=== PATIENT | male | born 1945 | race Caucasian/White ===

== ENCOUNTER 2017-08-23 23:01 | Emergency (ER) | payer SELFPAY ==
--- NOTE | 2017-08-23 23:49 | ED PSYCHIATRIC COMPLAINT ---
History of Present Illness General Chief Complaint: ETOH/Drug Related Complaint Stated Complaint: ETOH Source: patient, old records, friend Exam Limitations: intoxication Vital Signs & Intake/Output Vital Signs & Intake/Output Vital Signs Date Time Temp Pulse Resp B/P B/P Pulse O2 O2 Flow FiO2 Mean Ox Delivery Rate 08/24 0312 97.6 75 18 128/68 97 Room Air 08/24 0030 97.5 58 18 136/84 99 Room Air Allergies Coded Allergies: No Known Allergies (08/23/17) Triage Nurses Notes Reviewed? yes Onset: Just prior to arrival Duration: minute(s):, constant, continues in ED Timing: recent history Severity: severe Associated Symptoms: impaired concentration HPI: Patient was at a wedding constitution party and felt he needed to lie down. He was found lying in a vil[place]. He denies fever chills nausea vomiting diarrhea abdominal pain chest pain shortness breath headache dysuria rash bleeding. Upon arriving in the emergency department he had nausea and vomiting. Upon awakening he complained of left ankle pain. Past History Medical History Any Pertinent Medical History? none Surgical History Surgical History: non-contributory Family History Hx Contributory? No Review of Systems Review of Systems Constitutional: Reports: no symptoms. EENTM: Reports: no symptoms. Respiratory: Reports: no symptoms. Cardiovascular: Reports: no symptoms. GI: Reports: see HPI, nausea, vomiting. Genitourinary: Reports: no symptoms. Musculoskeletal: Reports: no symptoms. Skin: Reports: no symptoms. Neurological/Psychological: Reports: see HPI, confusion. Hematologic/Endocrine: Reports: no symptoms. Immunologic/Allergic: Reports: no symptoms. All Other Systems: Reviewed and Negative Physical Exam Physical Exam General Appearance: well developed/nourished, alert, awake, mild distress, obese Head: atraumatic, normal appearance Eyes: Bilateral: normal appearance, PERRL, EOMI. 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 patient not suicidal Progress Differential Diagnosis: drug intoxication, drug overdose, drug withdrawal, electrolyte abnormality Plan of Care: Orders Procedure Date/time Status Regular Diet 08/24 B Active Durable Medical Equipment 08/24 8087 Active Diagnostic Imaging: Viewed by Me: Radiology Read. Discussed w/RAD: Radiology Read. Radiology Impression: Obliquely oriented distal fibular fracture without significant displacement. Overlying soft tissue swelling. Departure Departure Time of Disposition: 636 Disposition: HOME OR SELF CARE Condition: Stable Clinical Impression Primary Impression: Alcohol intoxication delirium Secondary Impressions: Ankle fracture, left Referrals: Vikki MEJIA,Yazan Call for orthopedic follow up Unknown (PCP/Family) Departure Forms: Customer Survey General Discharge Information
--- NOTE | 2017-08-24 05:48 | RADIOLOGY REPORT ---
EXAMINATION: XR ANKLE, LEFT CLINICAL INFORMATION: Left ankle swelling. Tenderness of the bilateral malleoli COMPARISON: None TECHNIQUE: AP, lateral, and mortise views of the left ankle. FINDINGS: There is an obliquely oriented distal fibular fracture. There is no significant displacement of the distal fragment. This does not seem to extend to the ankle mortise. Prominent overlying soft tissue swelling. The ankle mortise remains congruent. No significant joint effusion. IMPRESSION: Obliquely oriented distal fibular fracture without significant displacement. Overlying soft tissue swelling.
[2017-08-24 06:41] VITALS: BP 151/88
== END 2017-08-24 07:07 ==
LOC: ERH 23:01
DX: S82.432A Displaced oblique fracture of shaft of left fibula, initial encounter for closed fracture (principal); F10.121 Alcohol abuse with intoxication delirium; X58.XXXA Exposure to other specified factors, initial encounter; Y92.9 Unspecified place or not applicable; Y93.9 Activity, unspecified
CPT/HCPCS: 73610-LT; J3101